=== PATIENT | female | born 1985 | race Caucasian/White ===

== ENCOUNTER 2022-03-12 17:28 | Emergency (ER) | payer OTHER ==
[~2022-03-12] VITALS: Ht 175.3 cm; Wt 86.2 kg
[2022-03-12] MEDS ORDERED: ESTRADIOL1 EACH TD (20:14)
[2022-03-12] MEDS ORDERED: ONDANSETRON ODT8 MG PO (21:34)
[2022-03-12] MEDS ORDERED: HYDROCODON-ACE1 EA10 PO (21:34)
== END 2022-03-12 21:56 | disposition home or self-care (01) ==
LOC: ED 17:28
DX: K80.20 Calculus of gallbladder without cholecystitis without obstruction (principal)
CPT/HCPCS: 36415; 74177; 80053; 81001; 83690; 85025; 87502; A9270; J2270; J2405; Q9967; U0003

== ENCOUNTER 2022-03-17 05:55 | Day surgery (SDC) | payer OTHER ==
[~2022-03-17 05:55] MED LIST: CANDICIDAL CAP1 EACH PO; ESTRADIOL1 EACH TD; FISH OIL + D31 EACH PO; HYDROCODON-ACE1 EA10 PO; MULTI VITAMIN1 EACH PO; ONDANSETRON ODT8 MG PO; PROBIOTIC1 EAC1 PO; UNISOM SLEEPMEL25 MG PO; ZYRTEC10 MG PO
[2022-03-17] MEDS ORDERED: IBUPROFEN600 MG PO (09:11)
[2022-03-17] MEDS ORDERED: OXYCODON-ACETA1 EAC2 PO ×2 (09:12→10:23)
[2022-03-17] MEDS ORDERED: ACETAMINOPHEN500 MG PO (09:12)
--- NOTE | 2022-03-17 14:27 | OR ---
[facility] [address], [place] [address] Signed DATE OF OPERATION: 03/17/2022 SURGEON: Cristela Mdconnell MD PREOPERATIVE DIAGNOSIS: Subacute and chronic calculous cholecystitis. POSTOPERATIVE DIAGNOSIS: Subacute and chronic calculous cholecystitis. PROCEDURES: 1. Laparoscopic cholecystectomy with intraoperative cholangiogram. 2. Surgeon-directed fluoroscopy. ANESTHESIA: General endotracheal, Saúl Garcia CRNA and local 20 mL of 0.25% Marcaine with epinephrine. INDICATION: This 36-year-old white woman is a patient of MELISSA Arce recently and Dr. Girish Sesay, [place] and had complaints of severe and unrelenting right subcostal pain with radiation into the subscapular area. Her primary provider is in [place] and she presented to the Urgent Care recently where she was seen by MELISSA Arce and prompt ultrasound of the gallbladder was obtained. There were multiple gallstones within the gallbladder and concern was maintained for possible gallbladder rupture, though subsequent CT scan disproved that. I have seen her two days ago in the office and her symptoms are improved but not resolved. I have recommended cholecystectomy. The risk of bleeding, infection, bile duct injury, need for open procedure and other unforeseen complications were reviewed with her, she understands and wished to proceed. FINDINGS: The gallbladder was subacutely inflamed. There were multiple 1 cm gallstones within the gallbladder. Cholangiogram was normal. There was no evidence of malignancy. Additionally, she had a small benign cyst adjacent to the gallbladder fossa. DESCRIPTION OF PROCEDURE: The patient was brought to the operating room, given a general endotracheal anesthetic. Preoperative antibiotic Ancef was given. Sequential compression device stockings were used and heparin subcutaneously administered. The abdomen was prepared with a chlorhexidine solution and draped sterilely. An infraumbilical incision was made and Electronically Signed By: CRISTELA MCDONNELL MD 03/17/22 1427 PATIENT NAME: PRISCILLA LENNON OPERATIVE REPORT DATE OF : 85 REPORT #: [id number] PHYSICIAN: CRISTELA MCDONNELL MD PCP: Girish Sesay DO REPORT IS CONFIDENTIAL AND NOT TO BE RELEASED WITHOUT AUTHORIZATION [facility] [address], [place] [address] Signed using an open Ysabel cannula technique pneumoperitoneum was achieved to a level of 14 mmHg of carbon dioxide gas. Intra-abdominal inspection showed no sign of ascites or carcinomatosis. The gallbladder was somewhat distended and chronically inflamed in its appearance. The liver was entirely normal. Three additional trocars were placed in the usual configuration in the subxiphoid, right midclavicular, and right anterior axillary line. The gallbladder was elevated and retracted cephalad. Using blunt electrocautery dissection, the triangle of Calot was dissected free identifying a dominant cystic arterial branch which was doubly clipped and divided. Further dissection of the cystic duct showed it to be rather small. A clip was applied across the gallbladder cystic duct junction and a transverse choledochotomy made in the cystic duct. Using an Boyer type cholangiocatheter, intraoperative cholangiography was undertaken showing free flow of contrast in biliary tree with prompt emptying into the duodenum. There was no sign of biliary anomaly. The catheter was removed and the cystic duct was triply clipped and divided and the gallbladder dissected free in a retrograde fashion using electrocautery. Although, the gallbladder was not entered, Endobag was used to extract the gallbladder through the infraumbilical port site. The gallbladder was opened on the back table by the circulating nurse and inspected showing multiple dark multifaceted gallstones and subacute inflammatory changes in the mucosa. There was no evidence of malignancy. Reinspection of the subhepatic space showed good hemostasis. The small cyst adjacent to the gallbladder fossa was photographed as well. The trocar was removed under direct visualization showing no sign of bleeding. The infraumbilical fascial incision was reapproximated with interrupted 0 Vicryl suture. 20 mL of 0.25% Marcaine with epinephrine was injected locally. The skin was closed with interrupted 3-0 Vicryl. Steri-Strips were applied. The patient was extubated without problem, taken to the recovery room in good condition having suffered no complication. Sponge, needle, and instrument counts were reported as correct x3. MD DRAKE Beasley/MODL /[id number] Electronically Signed By: CRISTELA MCDONNELL MD 03/17/22 1427 PATIENT NAME: PRISCILLA LENNON OPERATIVE REPORT DATE OF : [birth year] REPORT #: [id number] PHYSICIAN: CRISTELA MCDONNELL MD PCP: Girish Sesay DO REPORT IS CONFIDENTIAL AND NOT TO BE RELEASED WITHOUT AUTHORIZATION [address] [address] Signed Copies: Girish Sesay LACEY FNP ~ Electronically Signed By: CRISTELA MCDONNELL MD 03/17/22 1427 PATIENT NAME: PRISCILLA LENNON OPERATIVE REPORT DATE OF : [birth year] REPORT #: [id number] PHYSICIAN: CRISTELA MCDONNELL MD PCP: Girish Sesay DO REPORT IS CONFIDENTIAL AND NOT TO BE RELEASED WITHOUT AUTHORIZATION
--- NOTE | 2022-03-19 17:04 | PATH ---
[facility] [address] [facility] [place] [address] Signed SPECIMEN(S): A GALLBLADDER AND GALLSTONES SPECIMEN SOURCE: A. GALLBLADDER AND GALLSTONES CLINICAL HISTORY: Calculus of gallbladder with cholecystitis. Laparoscopic cholecystectomy. FINAL PATHOLOGIC DIAGNOSIS: Gallbladder: - Chronic calculous cholecystitis. JVR:evelia:C2NR MICROSCOPIC EXAMINATION: Histologic sections of all submitted blocks are examined by light microscopy. These findings, together with the gross examination, support the pathologic diagnosis. GROSS DESCRIPTION: The specimen, labeled "SH, gallbladder," is received in formalin and consists of Specimen: Previously opened gallbladder. Dimensions: 7.8 cm in length and 5.0 cm in inner circumference. Serosa: Violaceous and smooth. Cystic Duct: Unobstructed. Calculi: Several brown, faceted gallstones within the container that range in size from 0.6-0.8 cm in greatest dimension. Mucosa: Green-loo and velvety. Wall thickness: 0.4 cm. Lymph node: No pericystic lymph nodes are grossly identified. Additional: None. Music Specialist sections are submitted in cassette (A1). JS (under the direct supervision of a pathologist) The Gross Description was prepared using a voice recognition system. The report was reviewed for accuracy; however, sound-alike word errors, addition and/or deletions may occur. If there is any question about this report, please contact Client Services. PERFORMING LABORATORY: The technical component was performed by [facility], [address] [place] [id number] (CLIA# [id number]). Professional interpretation was PATIENT NAME: PRISCILLA LENNON PATHOLOGY DATE OF : [birth year] REPORT #: [id number] PHYSICIAN: STEVEN PATHOLOGY PCP: Girish Sesay DO REPORT IS CONFIDENTIAL AND NOT TO BE RELEASED WITHOUT AUTHORIZATION [facility] [address] [place], [place] [address] Signed performed by [facility] [address] [address] (CLIA#: [id number]). Diagnostician: Ishmael Thurston MD Pathologist Electronically Signed 03/19/2022 Copies: ~ PATIENT NAME: PRISCILLA LENNON PATHOLOGY DATE OF : [birth year] REPORT #: [id number] PHYSICIAN: STEVEN PATHOLOGY PCP: Girish Sesay DO REPORT IS CONFIDENTIAL AND NOT TO BE RELEASED WITHOUT AUTHORIZATION
== END 2022-03-17 13:49 | disposition home or self-care (01) ==
LOC: DS 05:55
PROVIDERS: ATTEND Surgery
PROC: BF12YZZ Fluoroscopy of Gallbladder using Other Contrast (ICD-10-PCS; 2022-03-17)
PROC: 0FT44ZZ Resection of Gallbladder, Percutaneous Endoscopic Approach (ICD-10-PCS; principal; 2022-03-17 07:30)
DX: K80.12 Calculus of gallbladder with acute and chronic cholecystitis without obstruction (principal); Z90.711 Acquired absence of uterus with remaining cervical stump; Z20.822 Contact with and (suspected) exposure to COVID-19
CPT/HCPCS: 00790; 74300; J0131; J0330; J0690; J1100; J1644; J1885; J2001; J2250; J2270; J2405; J2704; J3010; J3475; J7121; Q9967